=== PATIENT | female | born 1990 | race Hispanic/Latino ===

== ENCOUNTER 2018-04-04 06:18 | Day surgery (SDC) | payer OTHER ==
[2018-04-02 10:14] VITALS: BP 133/73
[~2018-04-04] VITALS: Ht 152.4 cm; Wt 93.8 kg
[2018-04-04] VITALS (12 sets, daily range): BP systolic 89–138; BP diastolic 44–91
[2018-04-04] MEDS: CEFAZOLIN SODIUM 1 GM VIAL IVP SCH ×2 (06:00→07:55)
[2018-04-04] MEDS ORDERED: LACTATED RINGERS 1000ML 1,000 ML IV ONE (07:01)
[2018-04-04] MEDS ORDERED: ACET-2743 PO (07:18)
[2018-04-04] MEDS ORDERED: EXCEES PO (07:18)
[2018-04-04] MEDS ORDERED: BUPIVACAINE/EPI/PF 0.5% 30ML VIAL IJ ONE (07:27)
[2018-04-04] MEDS ORDERED: LIDOCAINE HCL 1% 20 ML VIAL ONE (07:28)
[2018-04-04] MEDS ORDERED: SODIUM BICARB [NEONATAL] 4.2% 10ML SYG ONE (07:28)
[2018-04-04] MEDS ORDERED: DEXAMETHASONE SOD PHOSPHATE 10MG/ML 1ML VIAL ONE (07:36)
[2018-04-04] MEDS ORDERED: LIDOCAINE PF 2% 5ML ABBOJECT ONE (07:36)
[2018-04-04] MEDS ORDERED: PROPOFOL 10 MG/ML 20ML VIAL IV ONE ×3 (07:37→08:48)
[2018-04-04] MEDS ORDERED: ONDANSETRON HCL 4 MG/2 ML VIAL ONE (07:37)
[2018-04-04] MEDS ORDERED: MIDAZOLAM HCL 1 MG/ML 2ML VIAL ONE (07:37)
[2018-04-04] MEDS ORDERED: FENTANYL CITRATE PF 50 MCG/1 ML 2ML VIAL ONE ×3 (07:37→09:14)
[2018-04-04] MEDS ORDERED: LIDOCAINE 1%-EPI 1:100,000 20 ML VIAL IJ ONE (07:54)
[2018-04-04] MEDS ORDERED: NEOMY SULF/POLYMYXIN B SULFATE 1 ML AMPUL IR ONE (08:32)
--- NOTE | 2018-04-04 10:45 | NUR ---
NEW PT RECEIVED NEW PT FROM PACU, S/P EXCISION TO MULTIPLE LESIONS TO SCALP X 4 , INCISION TO SCALP WITH DERMABOND IN PLACE. OPEN TO AIR NO DRESSING TO SITES INCISIONS WELL APPROXIMATED WITH NO REDNESS , DRAINAGE NOTED. ICE PACKS IN P LACE. PT AWAKE AND ALERT, VS STABLE ON ARRIVAL. TEDS /SCD IN PLACE.
--- NOTE | 2018-04-04 11:20 | NUR ---
DC DC INSTRUCTIONS GIVEN TO PT/PTS MOM WITH RX, INSTRUCTED TO F/U WITH DR. Kyle SINGLETARY , INSTRUCTED ON NEW MED REGIMEN AND POSSIBLE SIDE EFFECTS OF NEW MED. PIV REMOVED. PT GETTING DRESS WILL GO HOME WHEN DRESS. ASSISTED BY MOM. VS STABLE.
--- NOTE | 2018-04-04 11:30 | NUR ---
DC PT DC HOME VIA WC, ACCOMPANIED BY MOM .
== END 2018-04-04 11:30 | disposition home or self-care (01) ==
LOC: DAH 06:18
PROVIDERS: ATTEND Surgery
DX: L72.12 Trichodermal cyst (principal); G43.909 Migraine, unspecified, not intractable, without status migrainosus; J45.909 Unspecified asthma, uncomplicated; E66.9 Obesity, unspecified; Z68.41 Body mass index [BMI] 40.0-44.9, adult; Z79.82 Long term (current) use of aspirin; Z82.5 Family history of asthma and other chronic lower respiratory diseases
CPT/HCPCS: 11423 ×4; 12034; 81025; 88304; A4218; A4510; A4600; G0168; J0690; J1100; J2001; J2250; J2405; J2704 ×3; J3010 ×3; J3490 ×4; J7120

== ENCOUNTER 2018-05-25 00:25 | Emergency (ER) | payer OTHER ==
[~2018-05-25 00:25] MED LIST: EXCEES PO
[2018-05-25 01:34] LABS: APPEARANCE,URINE Clear (CLEAR); BILIRUBIN,URINE Negative (NEGATIVE); COLOR,URINE Yellow (YELLOW); GLUCOSE, URINE (UA) Negative (NEGATIVE); KETONES,URINE Negative (NEGATIVE); LEUKOCYTE ESTERASE ,URINE Negative (NEGATIVE); NITRATE,URINE Negative (NEGATIVE); OCCULT BLOOD,URINE Small (NEGATIVE); PH,URINE 6.5 (5.0-8.0); PROTEIN,URINE 300 mg/dL (NEGATIVE)
[2018-05-25 01:38] LABS: HCG,QUAL RESULT NEGATIVE (NEGATIVE)
[2018-05-25 01:43] LABS: BACTERIA,URINE None Seen /HPF (None Seen); MUCUS,URINE Few LPF (None Seen); SQUAMOUS EPITHELIAL CELL,UR Few /HPF (0-2); WBC,URINE None Seen /HPF (0-1)
== END 2018-05-25 02:24 | disposition home or self-care (01) ==
LOC: EDH 00:25
DX: J20.9 Acute bronchitis, unspecified (principal); Z79.899 Other long term (current) drug therapy
CPT/HCPCS: 71046; 81001; 81025; 87804

== ENCOUNTER 2023-01-22 18:08 | Emergency (ER) | payer BC, OTHER ==
[~2023-01-22] VITALS: Ht 152.4 cm; Wt 87.5 kg
[2023-01-22 19:24] LABS: BASOPHILS # (AUTO) 0.03 K/uL (0.00-0.20); BASOPHILS % (AUTO) 0.4 % (0.0-5.0); EOSINOPHILS # (AUTO) 0.18 K/uL (0.00-0.70); EOSINOPHILS % (AUTO) 2.4 % (0.0-8.0); HEMATOCRIT 38.9 % (36-48); IMMATURE GRANULOCYTE ABSOLUTE 0.02 K/uL (0-1); LYMPHOCYTES # (AUTO) 1.7 K/uL (1.0-4.8); LYMPHOCYTES % (AUTO) 22.4 % (21.0-51.0); MEAN CORPUSCULAR HEMOGLOBIN 27.3 pg (27.0-33.0); MEAN CORPUSCULAR HGB CONC 31.9 g/dL (32.0-36.0); MEAN CORPUSCULAR VOLUME 85.7 fL (79-99); MONOCYTES # (AUTO) 0.8 K/uL (0.1-1.0); MONOCYTES % (AUTO) 11.4 % (3.0-13.0); NEUTROPHILS # (AUTO) 4.6 K/uL (1.8-7.7); NEUTROPHILS % (AUTO) 63.1 % (40.0-77.0); PLATELET COUNT (AUTO) 313 K/uL (130-400); RED BLOOD CELL COUNT(AUTO) 4.54 MIL/uL (4.00-5.50); RED CELL DISTRIBUTION WIDTH 13.3 % (11.0-15.5); WHITE BLOOD COUNT (AUTO) 7.4 K/uL (4.8-10.8)
[2023-01-22 19:39] LABS: CREATININE 0.9 mg/dL (0.5-1.5); POTASSIUM 4.2 mmol/L (3.5-5.1)
[2023-01-22 19:43] LABS: ALBUMIN 3.2 g/dL (3.5-5.0); BILIRUBIN,TOTAL 0.1 mg/dL (0.2-1.0)
[2023-01-22 21:12] LABS: APPEARANCE,URINE CLOUDY (CLEAR); BILIRUBIN,URINE NEGATIVE (NEGATIVE); COLOR,URINE LIGHT-YELLOW (YELLOW); GLUCOSE, URINE (UA) NEGATIVE (NEGATIVE); KETONES,URINE NEGATIVE (NEGATIVE); LEUKOCYTE ESTERASE ,URINE 25 Leu/uL (NEGATIVE); NITRATE,URINE NEGATIVE (NEGATIVE); OCCULT BLOOD,URINE LARGE (NEGATIVE); PROTEIN,URINE 300 mg/dL (NEGATIVE); UROBILINOGEN,URINE 0.2 mg/dL (0.2-1.0)
[2023-01-22 21:13] LABS: ADD UA MICROSCOPIC YES
[2023-01-22 21:16] LABS: BACTERIA,URINE FEW /HPF (None Seen); HCG,QUALITATIVE URINE NEGATIVE (NEGATIVE); MUCUS,URINE RARE LPF (None Seen); RBC,URINE 26-50 /HPF (0-1); SQUAMOUS EPITHELIAL CELL,UR FEW /HPF (0-2); YEAST,URINE BUDDING RARE /HPF (None Seen)
[2023-01-22] MEDS ORDERED: IBUP-2077 PO (22:12)
[2023-01-22] MEDS ORDERED: ONDA22I PO (22:12)
[2023-01-22 23:08] VITALS: BP 130/74; PULSE 76; RESP 16; O2SAT 99
== END 2023-01-22 23:08 | disposition home or self-care (01) ==
LOC: EDH 18:08
DX: A08.4 Viral intestinal infection, unspecified (principal); R82.71 Bacteriuria; F41.9 Anxiety disorder, unspecified; E66.9 Obesity, unspecified; E78.00 Pure hypercholesterolemia, unspecified; I10 Essential (primary) hypertension; J45.909 Unspecified asthma, uncomplicated
CPT/HCPCS: 36415; 80053; 81001; 81025; 83690; 84703; 85025; 87088

== ENCOUNTER 2023-02-14 14:01 | Emergency (ER) | payer BC ==
[~2023-02-14] VITALS: Ht 152.4 cm; Wt 86.6 kg
[~2023-02-14 14:01] MED LIST changes: +IBUP-2077 PO; +ONDA22I PO
[2023-02-14 17:50] VITALS: BP 121/74; PULSE 81; RESP 16; O2SAT 99
== END 2023-02-14 17:58 | disposition home or self-care (01) ==
LOC: EDH 14:01
DX: M79.662 Pain in left lower leg (principal); M79.661 Pain in right lower leg
CPT/HCPCS: 93970